=== PATIENT | female | born 1975 | race Caucasian/White ===

== ENCOUNTER 2023-03-08 16:29 | Inpatient (IN) | payer BC ==
--- NOTE | 2023-03-08 17:49 | ED ---
Abdominal Pain HPI - General Chief Complaint: Abdominal Pain Stated Complaint: [place] Time Seen by Provider: 03/08/23 17:50 Source: patient Mode of arrival: ambulatory - History of Present Illness Initial Comments: 47-year-old female presenting to the ED with a chief complaint of abnormal imaging. Patient states for the past 2 weeks has had upper abdominal pain radiating to the right upper side of her abdomen with associated nausea and vomiting. CT performed today shows gallstone within the gallbladder neck with gallbladder wall thickening suspicious for acute cholecystitis. Denies fever or chills. No changes in bowel or bladder habits. No chest pain or shortness of breath. No other complaints. - Related Data Allergies Allergy/AdvReac Type Severity Reaction Status Date / Time azithromycin Allergy Rash/Hives Verified 03/08/23 16:34 Penicillins Allergy Rash/Hives Verified 03/08/23 16:34 Sulfa (Sulfonamide Allergy Anaphylaxis Verified 03/08/23 16:34 Antibiotics) Review of Systems ROS Statement: Those systems with pertinent positive or pertinent negative responses have been documented in the HPI. ROS Other: All systems not noted in ROS Statement are negative. Past Medical History Past Medical History: No Reported History History of Any Multi-Drug Resistant Organisms: None Reported Past Surgical History: Tubal Ligation Past Psychological History: Anxiety Smoking Status: Former smoker Past Alcohol Use History: None Reported Past Drug Use History: None Reported General Exam - General Exam Comments Initial Comments: Visual Physical Exam Vital signs reviewed General: Well-appearing, nontoxic, no acute distress. Head: Normocephalic, atraumatic Eyes: PERRLA, EOMI ENT: Airway patent Chest: Nonlabored breathing Skin: No visual rash, normal skin tone Neuro: Alert and oriented 3 Musculoskeletal: No gross abnormalities General appearance: alert, in no apparent distress Neck exam: Present: normal inspection Respiratory exam: Present: normal lung sounds bilaterally Cardiovascular Exam: Present: regular rate, normal rhythm GI/Abdominal exam: Present: soft (Epigastric and right upper quadrant tenderness to palpation.) Neurological exam: Present: alert, oriented X3 Skin exam: Present: warm, dry Course Vital Signs 03/08/23 16:31 Temperature 98.2 F Pulse Rate 96 Respiratory 18 Rate O2 Sat by Pulse 100 Oximetry Medical Decision Making - Medical Decision Making Was pt. sent in by a medical professional or institution (, PA, OFFICE SUPPORT ASSISTANT, urgent care, hospital, or halfway...) When possible be specific @ -No Did you speak to anyone other than the patient for history (EMS, parent, family, police, friend...)? What history was obtained from this source @ -No Did you review nursing and triage notes (agree or disagree)? Why? @ -I reviewed and agree with nursing and triage notes Were old charts reviewed (outside hosp., previous admission, EMS record, old EKG, old radiological studies, urgent care reports/EKG's, halfway records)? Report findings @ -Computed tomography scan reviewed. For further details please see HPI. Differential Diagnosis (chest pain, altered mental status, abdominal pain women, abdominal pain men, vaginal bleeding, weakness, fever, dyspnea, syncope, headache, dizziness, GI bleed, back pain, seizure, CVA, palpatations, mental health, musculoskeletal)? @ -Differential Abdominal Pain Women: Appendicitis, Cholecystitis, diverticulosis, ischemic bowel, pancreatitis, hepatitis, UTI, gastroenteritis, AAA, incarcerated hernia, bowel obstruction, constipation, inflammatory bowel, hepatitis, peptic ulcer disease, splenic infarction, perforated viscus, vulvitis, ovarian torsion, PID, kidney stone, placenta abruption, this is not meant to be an all-inclusive list EKG interpreted by me (3pts min.). @ -EKG shows a sinus rhythm with nonspecific ST and T-wave changes. X-rays interpreted by me (1pt min.). @ -None done CT interpreted by me (1pt min.). @ -None done U/S interpreted by me (1pt. min.). @ -Ultrasound interpreted by me showing 2.1 cm stone near the neck of the gallbladder. What testing was considered but not performed or refused? (CT, X-rays, U/S, labs)? Why? @ -None What meds were considered but not given or refused? Why? @ -None Did you discuss the management of the patient with other professionals (professionals i.e. , PA, OFFICE SUPPORT ASSISTANT, lab, RT, psych nurse, perinatal social worker, surgeon/president, t eacher, chief supply chain officer, gearcase assembler)? Give summary @ -Case discussed with Dr. Robertson, at this time recommends addition of gallbladder ultrasound. Case discussed with Dr. Robertson, who kathryn admission to medicine with her on consult. Discussed with Dr. Sy, who accepts admission with consult to surgery. Was smoking cessation discussed for >3mins.? @ -No Was critical care preformed (if so, how long)? @ -No Were there social determinants of health that impacted care today? How? (Homelessness, low income, unemployed, alcoholism, drug addiction, transportation, low edu. Level, literacy, decrease access to med. care, correction, rehab)? @ -No Was there de-escalation of care discussed even if they declined (Discuss DNR or withdrawal of care, Hospice)? DNR status @ -No What co-morbidities impacted this encounter? (DM, HTN, Smoking, COPD, CAD, Cancer, CVA, ARF, Chemo, Hep., AIDS, mental health diagnosis, sleep apnea, morbid obesity)? @ -Obesity Was patient admitted / discharged? Hospital course, mention meds given and route, prescriptions, significant lab abnormalities, going to OR and other pertinent info. @ -Admission 47 year old female presenting to the ED with a chief complaint of epigastric/RUQ abdominal pain for the past two weeks with associated nausea and vomiting. Patient had outpatient CT performed today that showed stones within the gallbladder. Ultrasound here shows stone 2.1 cm near the neck of the gallbladder. Laboratory studies reviewed. CBC CMP unremarkable with no transaminitis. He shouldn't not started on broad-spectrum antibiotics in the ED due to significant ALLERGIES to azithromycin, penicillins, sulfa drugs. Hospitalist reports that he will start the patient on IV antibiotics. Undiagnosed new problem with uncertain prognosis? @ -No Drug Therapy requiring intensive monitoring for toxicity (Heparin, Nitro, Insulin, Cardizem)? @ -No Were any procedures done? @ -No Diagnosis/symptom? @ -Choleystitis Acute, or Chronic, or Acute on Chronic? @ -Acute Uncomplicated (without systemic symptoms) or Complicated (systemic symptoms)? @ -Uncomplicated Side effects of treatment? @ -No Exacerbation, Progression, or Severe Exacerbation? @ -No Poses a threat to life or bodily function? How? (Chest pain, USA, CT, pneumonia, PE, COPD, DKA, ARF, appy, cholecystitis, CVA, Diverticulitis, Homicidal, Suicidal, threat to staff... and all critical care pts) @ -No - Lab Data Result diagrams: 03/08/23 18:42 03/08/23 18:42 Lab Results 03/08/23 03/08/23 03/08/23 Range/Units 18:42 18:42 18:42 WBC 9.9 (3.8-10.6) k/uL RBC 4.58 (3.80-5.40) m/uL Hgb 14.6 (11.4-16.0) gm/dL Hct 43.6 (34.0-46.0) % MCV 95.0 (80.0-100.0) fL MCH 31.7 (25.0-35.0) pg MCHC 33.4 (31.0-37.0) g/dL RDW 12.3 (11.5-15.5) % Plt Count 233 (150-450) k/uL MPV 7.7 Neutrophils % 73 % Lymphocytes % 16 % Monocytes % 6 % Eosinophils % 2 % Basophils % 1 % Neutrophils # 7.2 (1.3-7.7) k/uL Lymphocytes # 1.6 (1.0-4.8) k/uL Monocytes # 0.5 (0-1.0) k/uL Eosinophils # 0.2 (0-0.7) k/uL Basophils # 0.1 (0-0.2) k/uL Sodium 139 (137-145) mmol/L Potassium 3.6 (3.5-5.1) mmol/L Chloride 102 (98-107) mmol/L Carbon Dioxide 25 (22-30) mmol/L Anion Gap 12 mmol/L BUN 9 (7-17) mg/dL Creatinine 0.50 L (0.52-1.04) mg/dL Est GFR (CKD-EPI)AfAm >90 (>60 ml/min/1.73 sqM) Est GFR (CKD-EPI)NonAf >90 (>60 ml/min/1.73 sqM) Glucose 92 (74-99) mg/dL Calcium 9.3 (8.4-10.2) mg/dL Total Bilirubin 0.7 (0.2-1.3) mg/dL AST 26 (14-36) U/L ALT 21 (4-34) U/L Alkaline Phosphatase 81 (38-126) U/L Total Protein 7.5 (6.3-8.2) g/dL Albumin 4.3 (3.5-5.0) g/dL Amylase 61 (30-110) U/L Lipase 137 (23-300) U/L Urine Color Dark Yellow Urine Appearance Slightly Cloudy H (Clear) Urine pH 6.0 (5.0-8.0) Ur Specific [place] 1.005 (1.001-1.035) Urine Protein Negative (Negative) Urine Glucose (UA) Negative (Negative) Urine Ketones 4+ (Negative) Urine Blood Small (Negative) Urine Nitrite Negative (Negative) Urine Bilirubin Negative (Negative) Urine Urobilinogen <2.0 (<2.0) mg/dL Ur Leukocyte Esterase Negative (Negative) Urine RBC 2 (0-5) /hpf Urine WBC 1 (0-5) /hpf Ur Squamous Epith Cells 1 (0-4) /hpf Urine Mucus Rare H (None) /hpf Blood Type Blood Type Recheck Bld Type Recheck Status Antibody Screen Spec Expiration Date 03/08/23 Range/Units 18:42 WBC (3.8-10.6) k/uL RBC (3.80-5.40) m/uL Hgb (11.4-16.0) gm/dL Hct (34.0-46.0) % MCV (80.0-100.0) fL MCH (25.0-35.0) pg MCHC (31.0-37.0) g/dL RDW (11.5-15.5) % Plt Count (150-450) k/uL MPV Neutrophils % % Lymphocytes % % Monocytes % % Eosinophils % % Basophils % % Neutrophils # (1.3-7.7) k/uL Lymphocytes # (1.0-4.8) k/uL Monocytes # (0-1.0) k/uL Eosinophils # (0-0.7) k/uL Basophils # (0-0.2) k/uL Sodium (137-145) mmol/L Potassium (3.5-5.1) mmol/L Chloride (98-107) mmol/L Carbon Dioxide (22-30) mmol/L Anion Gap mmol/L BUN (7-17) mg/dL Creatinine (0.52-1.04) mg/dL Est GFR (CKD-EPI)AfAm (>60 ml/min/1.73 sqM) Est GFR (CKD-EPI)NonAf (>60 ml/min/1.73 sqM) Glucose (74-99) mg/dL Calcium (8.4-10.2) mg/dL Total Bilirubin (0.2-1.3) mg/dL AST (14-36) U/L ALT (4-34) U/L Alkaline Phosphatase (38-126) U/L Total Protein (6.3-8.2) g/dL Albumin (3.5-5.0) g/dL Amylase (30-110) U/L Lipase (23-300) U/L Urine Color Urine Appearance (Clear) Urine pH (5.0-8.0) Ur Specific [place] (1.001-1.035) Urine Protein (Negative) Urine Glucose (UA) (Negative) Urine Ketones (Negative) Urine Blood (Negative) Urine Nitrite (Negative) Urine Bilirubin (Negative) Urine Urobilinogen (<2.0) mg/dL Ur Leukocyte Esterase (Negative) Urine RBC (0-5) /hpf Urine WBC (0-5) /hpf Ur Squamous Epith Cells (0-4) /hpf Urine Mucus (None) /hpf Blood Type A Positive Blood Type Recheck No Previous Record Bld Type Recheck Status CABO Indicated Antibody Screen NEGATIVE Spec Expiration Date 03/11/20232341 Disposition Clinical Impression: Cholecystitis Disposition: ADMITTED IP TO THIS HOSP Condition: Good Referrals: Daryl Matthews MD [Primary Care Provider] - 1-2 days Time of Disposition: 22:26
[2023-03-08 19:46] LABS: Basophils # (A) 0.1 k/uL (0-0.2); Basophils % (A) 1 %; Eosinophils # (A) 0.2 k/uL (0-0.7); Eosinophils % (A) 2 %; HCT 43.6 % (34.0-46.0); HGB 14.6 gm/dL (11.4-16.0); Lymphocytes # (A) 1.6 k/uL (1.0-4.8); Lymphocytes % (A) 16 %; MCH 31.7 pg (25.0-35.0); MCHC 33.4 g/dL (31.0-37.0); Mean Platelet Volume 7.7; Monocytes # (A) 0.5 k/uL (0-1.0); Monocytes % (A) 6 %; Neutrophils # (A) 7.2 k/uL (1.3-7.7); Neutrophils % (A) 73 %; Platelet Count 233 k/uL (150-450); RBC 4.58 m/uL (3.80-5.40); RDW 12.3 % (11.5-15.5); WBC 9.9 k/uL (3.8-10.6)
[2023-03-08 20:05] LABS: Mucus,Urine Rare /hpf; RBC,Urine 2 /hpf (0-5); Squamous Epithelial Cell,Urine 1 /hpf (0-4); WBC,Urine 1 /hpf (0-5)
[2023-03-08 20:09] LABS: ALT 21 U/L (4-34); AST 26 U/L (14-36); African American GFR (CKD) >90 (>60 ml/min/1.73 sqM); Albumin 4.3 g/dL (3.5-5.0); Alkaline Phosphatase 81 U/L (38-126); Amylase 61 U/L (30-110); Anion Gap 12 mmol/L; Blood Urea Nitrogen 9 mg/dL (7-17); Calcium 9.3 mg/dL (8.4-10.2); Carbon Dioxide 25 mmol/L (22-30); Chloride 102 mmol/L (98-107); Glucose 92 mg/dL (74-99); Lipase 137 U/L (23-300); Non-African American GFR(CKD) >90 (>60 ml/min/1.73 sqM); Potassium 3.6 mmol/L (3.5-5.1); Sodium 139 mmol/L (137-145); Total Bilirubin 0.7 mg/dL (0.2-1.3); Total Protein 7.5 g/dL (6.3-8.2)
[2023-03-08 20:17] LABS: Appearance,Urine Slightly Cloudy (Clear); Color,Urine Dark Yellow; Specific Gravity,Urine 1.005 (1.001-1.035)
[2023-03-08 20:18] LABS: Bilirubin,Urine Negative (Negative); Blood,Urine Small (Negative); Glucose,Urine (UA) Negative (Negative); Ketones,Urine 4+ (Negative); Protein,Urine Negative (Negative)
[2023-03-08 20:19] LABS: Leukocyte Esterase,Urine Negative (Negative); Nitrite,Urine Negative (Negative); Urobilinogen,Urine <2.0 mg/dL (<2.0)
--- NOTE | 2023-03-08 21:41 | US ---
EXAMINATION TYPE: US gallbladder DATE OF EXAM: 03/08/2023 COMPARISON: CT: Today CLINICAL INDICATION: Female, 47 years old with history of hx stone; RUQ pain x 2 weeks with N/V. CT f ound gallstones today TECHNIQUE: Multiple sonographic images of the right upper quadrant are obtained. FINDINGS: Exam limited by bowel gas. EXAM MEASUREMENTS: Liver Length: 13.9 cm Gallbladder Wall: 0.81 cm CBD: 0.48 cm Right Kidney: 11.2 x 4.6 x 5.1 cm CANAL LOCK TENDER CHIEF OPERATOR NOTES: Pancreas: Only head visible, which appears wnl Liver: Heterogeneous without focal mass lesion. Gallbladder: Large gallstone near neck measuring 2.1cm. Other echogenic material seen (Image 36) Evidence for sonographic Mejia's sign: Yes CBD: wnl Right Kidney: wnl IMPRESSION: Cholelithiasis with a thickened appearance of the gallbladder wall and positive sonographic Mejia's sign, suggestive of acute cholecystitis.
[2023-03-08] MEDS ORDERED: NALOXONE 0.4 MG/ML 1 ML VIAL IV PRN (22:18)
[2023-03-08] MEDS ORDERED: KETOROLAC 15 MG/ML 1 ML VIAL IVP PRN (22:18)
[2023-03-08] MEDS ORDERED: metroNIDAZOLE-NS PMX 500 MG in SALINE 1 100ML.BAG IVPB STA (22:20)
[2023-03-08] MEDS ORDERED: LEVOFLOXACIN 750MG-D5W PMX 750 MG in DEXTROSE/WATER 1 150ML.BAG IVPB STA (22:20)
[2023-03-08] MEDS: SODIUM CHLORIDE 0.9% 1,000 ML IV SCH (23:13)
[2023-03-09] MEDS ORDERED: PANTOPRAZOLE 40 MG TABLET PO PRN (05:02)
--- NOTE | 2023-03-09 05:06 | P.HPIM ---
History of Present Illness H&P Date: 03/08/23 Chief Complaint: Abnormal computed tomography scan results 47-year-old female with anxiety Patient coming in for computed tomography scan of the abdomen results showing possible acute cholecystitis. Patient reports 2 week of abdominal pain described it as midepigastric radiating to the right upper quadrant shooting to the right shoulder sometimes wraps around her belly to the back with pain sharp in nature worse with eating. She reports decreased by mouth intake taking only liquids if needed. However over the weekend she had increased pain after eating a meal associated with nausea and vomiting worsening abdominal pain she denies any urinary changes denies any vaginal discharge or bleeding denies any changes in bowel habits denies any fevers or chills. She does report a remote history of stomach ulcers. Today she had a CAT scan done which was suspicious for acute cholecystitis for which she came to the hospital for further care review of systems Pertinent positives as noted in HPI. All other systems were reviewed and are negative on exam Constitutional: No acute distress, conversant, pleasant Eyes: Anicteric sclerae, moist conjunctiva, Pupils equal round reactive to light ENMT: NC/AT Oropharynx clear, no erythema, or exudates Neck: Supple, no masses, or JVD No carotid bruits No thyromegaly Lungs: Clear to auscultation Clear to percussion Normal respiratory effort, no accessory muscle use Cardiovascular: Heart regular in rate and rhythm, No murmurs, gallops, or rubs No peripheral edema Abdominal: Soft Tender to palpation of the right upper quadrant with Mejia sign positive, no guarding, rebound or rigidity Abdomen moving with respiration Normoactive bowel sounds No hepatomegaly, No splenomegaly No palpable mass No abdominal wall hernia noted Extremities: No digital cyanosis No clubbing Pedal pulses intact and symmetrical Radial pulses intact and symmetrical No calf tenderness Psychiatric: Alert and oriented to person, place and time Appropriate affect fair judgement Neuro Muscles Strength 5/5 in all 4 extremities Sensation to light touch grossly present throughout Cranial nerves II-XII grossly intact Lymphatics: no palpable cervical or supraclavicular lymph nodes Past Medical History Past Medical History: No Reported History History of Any Multi-Drug Resistant Organisms: None Reported Past Surgical History: Tubal Ligation Past Psychological History: Anxiety Smoking Status: Former smoker Past Alcohol Use History: None Reported Past Drug Use History: None Reported Medications and Allergies Home Medications Medication Instructions Recorded Confirmed Type Cetirizine HCl [Zyrtec] 10 mg PO DAILY 03/08/23 03/08/23 History Echinacea & Goldenseal Root 1 cap PO DAILY 03/08/23 03/08/23 History Supplement Multivitamins, Thera [Multivitamin 1 tab PO DAILY 03/08/23 03/08/23 History (formulary)] Omeprazole 20 mg PO DAILY PRN 03/08/23 03/08/23 History PARoxetine HCL [Paxil] 30 mg PO DAILY 03/08/23 03/08/23 History Sucralfate [Carafate] 1 gm PO DIRECTED 03/08/23 03/08/23 History diphenhydrAMINE HCL [Benadryl] 25 mg PO HS 03/08/23 03/08/23 History Allergies Allergy/AdvReac Type Severity Reaction Status Date / Time azithromycin Allergy Rash/Hives Verified 03/08/23 23:08 Penicillins Allergy Rash/Hives Verified 03/08/23 23:08 Sulfa (Sulfonamide Allergy Anaphylaxis Verified 03/08/23 23:08 Antibiotics) Physical Exam Vitals: Vital Signs Temp Pulse Resp Pulse Ox 03/08/23 16:31 98.2 F 96 18 100 Intake and Output 03/08/23 03/08/23 03/09/23 14:59 22:59 06:59 Other: Weight 111.13 kg Results CBC & Chem 7: 03/08/23 18:42 03/08/23 18:42 Labs: Abnormal Lab Results - Last 24 Hours (Table) 03/08/23 03/08/23 Range/Units 18:42 18:42 Creatinine 0.50 L (0.52-1.04) mg/dL Urine Appearance Slightly Cloudy H (Clear) Urine Mucus Rare H (None) /hpf Assessment and Plan Assessment: 47-year-old female with anxiety coming in with abnormal abdominal CAT scan results showing possible acute cholecystitis patient has been reporting symptoms of upper abdominal pain with nausea vomiting with eating over the past 2 weeks I discussed case with the pengor accepted the admission for acute cholecystitis secondary to gallstones with anticipated length of stay more than 2 midnights Acute cholecystitis secondary to gallstones Gen. surgery consultation Follow-up cultures Patient started on levofloxacin 750 mg IV piggyback daily with Flagyl 500 mg IV piggyback every 8 hours( due to ALLERGIES to penicillin) Toradol 15 mg IV push every 6 hours when necessary for pain Protonix 40 mg by mouth daily IV fluid hydration normal saline for 75 mL per hour Nothing by mouth Abdominal ultrasound was positive for sonographic Mejia sign positive CAT scan done outpatient the abdomen was positive for gallstones was suspected acute cholecystitis Anxiety Continue with Paxil Xanax when necessary when 5 mg every 8 hours by mouth Blood work reviewed shows white count 9.9 hemoglobin 14.6 unremarkable Renal function unremarkable sodium 139 potassium 3.6 BUN 9 creatinine 0.5 Troponin negative 2 Urine analysis unremarkable Liver enzymes unremarkable with AST 26 ALT 21 alkaline phosphatase 81 total bilirubin 0.7 Full code DVT prophylaxis heparin subcu 3 times a day
[2023-03-09] MEDS ORDERED: ALPRAZolam 0.5 MG TAB PO PRN (05:08)
[2023-03-09] MEDS: metroNIDAZOLE-NS PMX 500 MG in SALINE 1 100ML.BAG IVPB SCH ×3 (06:45→23:52)
[2023-03-09] MEDS: HEPARIN SODIUM,PORCINE 5,000 UNIT/ML 1 ML VIAL SQ SCH ×3 (08:03→23:51)
[2023-03-09] MEDS: PANTOPRAZOLE 40 MG TABLET PO SCH (08:03)
[2023-03-09 10:07] LABS: Basophils # (A) 0.1 k/uL (0-0.2); Basophils % (A) 1 %; Eosinophils # (A) 0.2 k/uL (0-0.7); Eosinophils % (A) 3 %; HCT 41.7 % (34.0-46.0); HGB 13.8 gm/dL (11.4-16.0); Lymphocytes # (A) 1.3 k/uL (1.0-4.8); Lymphocytes % (A) 18 %; MCH 32.3 pg (25.0-35.0); MCHC 33.1 g/dL (31.0-37.0); MCV 97.5 fL (80.0-100.0); Mean Platelet Volume 7.4; Monocytes # (A) 0.5 k/uL (0-1.0); Monocytes % (A) 6 %; Neutrophils # (A) 4.9 k/uL (1.3-7.7); Neutrophils % (A) 69 %; Platelet Count 227 k/uL (150-450); RBC 4.27 m/uL (3.80-5.40); RDW 11.9 % (11.5-15.5); WBC 7.1 k/uL (3.8-10.6)
[2023-03-09] MEDS: PARoxetine 10 MG TAB PO SCH (10:20)
[2023-03-09 10:25] LABS: African American GFR (CKD) >90 (>60 ml/min/1.73 sqM); Albumin 3.7 g/dL (3.5-5.0); Albumin/Globulin Ratio 1.2; Alkaline Phosphatase 63 U/L (38-126); Anion Gap 12 mmol/L; Blood Urea Nitrogen 9 mg/dL (7-17); Calcium 8.6 mg/dL (8.4-10.2); Carbon Dioxide 22 mmol/L (22-30); Chloride 105 mmol/L (98-107); Glucose 82 mg/dL (74-99); Non-African American GFR(CKD) >90 (>60 ml/min/1.73 sqM); Sodium 139 mmol/L (137-145); Total Bilirubin 0.8 mg/dL (0.2-1.3); Total Protein 6.7 g/dL (6.3-8.2)
[2023-03-09 10:31] LABS: ALT 18 U/L (4-34); AST 31 U/L (14-36)
--- NOTE | 2023-03-09 12:46 | P.GSCN ---
History of Present Illness Consult date: 03/09/23 History of present illness: CHIEF COMPLAINT: Abdominal pain HISTORY OF PRESENT ILLNESS: This is a 47-year-old female who presents with right upper quadrant abdominal pain 2 weeks. She reports initially she thought she had the flu. But then continued to have a decreased appetite and episodes of nausea and vomiting. Patient reports that she had finally been feeling better try to eat steak, vegetables and rice and then proceeded to have increased abdominal pain and vomiting. She denies any fever chills or sweats. Surgical history includes a tubal ligation. Gallbladder ultrasound had shown gallstones and thickened gallbladder wall with a positive Mejia sign, suggestive of acute cholecystitis. Surgical service consulted for acute cholecystitis. Patient is on IV antibiotics. PAST MEDICAL HISTORY: See below PAST SURGICAL HISTORY: See below MEDICATIONS: See below ALLERGIES: See below SOCIAL HISTORY: No illicit drug use. REVIEW OF SYSTEMS: CONSTITUTIONAL: Denies fever or chills. HEENT: Denies blurred vision, vision changes, or eye pain. Denies hemoptysis CARDIOVASCULAR: Denies chest pain or pressure. RESPIRATORY: No shortness of breath. GASTROINTESTINAL: See HPI for pertinent findings HEMATOLOGIC: Denies bleeding disorders. GENITOURINARY: Denies any blood in urine or increased urinary frequency. SKIN: Denies pruitis. Denies rash. PHYSICAL EXAM: VITAL SIGNS: Reviewed GENERAL: Well-developed in no acute distress. HEENT: No sclera icterus. Extraocular movements grossly intact. Moist buccal mucosa. Head is atraumatic, normocephalic. No nasal drainage. ABDOMEN: Soft. Nondistended. Right upper quadrant tenderness with palpation NEUROLOGIC: Alert and oriented. Cranial nerves II through XII grossly intact. LABORATORY DATA: WBC 7.1 Hgb 13.8 platelets 227 Sodium 139 potassium 4.0 creatinine 0.43 Liver enzymes normal Troponins negative 3 sets lipase 137 IMAGING: Gallbladder ultrasound as stated above ASSESSMENT: 1. Acute cholecystitis with ultrasound showing evidence of cholelithiasis, thickened gallbladder wall and positive Mejia sign 2. Anxiety PLAN: -Patient scheduled for Robotic cholecystectomy today with Dr. Robertson -Keep patient nothing by mouth -Continue IV antibiotics -Continue supportive care Thank you for this consultation Physician Shop Mechanic note has been reviewed by physician. Signing provider agrees with the documented findings, assessment, and plan of care. Past Medical History Past Medical History: No Reported History History of Any Multi-Drug Resistant Organisms: None Reported Past Surgical History: Tubal Ligation Past Psychological History: Anxiety Smoking Status: Former smoker Past Alcohol Use History: None Reported Past Drug Use History: None Reported Medications and Allergies Home Medications Medication Instructions Recorded Confirmed Type Cetirizine HCl [Zyrtec] 10 mg PO DAILY 03/08/23 03/08/23 History Echinacea & Goldenseal Root 1 cap PO DAILY 03/08/23 03/08/23 History Supplement Multivitamins, Thera [Multivitamin 1 tab PO DAILY 03/08/23 03/08/23 History (formulary)] Omeprazole 20 mg PO DAILY PRN 03/08/23 03/08/23 History PARoxetine HCL [Paxil] 30 mg PO DAILY 03/08/23 03/08/23 History Sucralfate [Carafate] 1 gm PO DIRECTED 03/08/23 03/08/23 History diphenhydrAMINE HCL [Benadryl] 25 mg PO HS 03/08/23 03/08/23 History Allergies Allergy/AdvReac Type Severity Reaction Status Date / Time azithromycin Allergy Rash/Hives Verified 03/08/23 23:08 Penicillins Allergy Rash/Hives Verified 03/08/23 23:08 Sulfa (Sulfonamide Allergy Anaphylaxis Verified 03/08/23 23:08 Antibiotics) Surgical - Exam Vital Signs Temp Pulse Resp Pulse Ox 98.2 F 96 18 100 03/08/23 16:31 03/08/23 16:31 03/08/23 16:31 03/08/23 16:31 Results - Labs 03/09/23 09:37 03/09/23 09:37 Abnormal Lab Results - Last 24 Hours (Table) 03/08/23 03/08/23 Range/Units 18:42 18:42 Creatinine 0.50 L (0.52-1.04) mg/dL Urine Appearance Slightly Cloudy H (Clear) Urine Mucus Rare H (None) /hpf Diabetes panel 03/08/23 Range/Units 18:42 Sodium 139 (137-145) mmol/L Potassium 3.6 (3.5-5.1) mmol/L Chloride 102 (98-107) mmol/L Carbon Dioxide 25 (22-30) mmol/L BUN 9 (7-17) mg/dL Creatinine 0.50 L (0.52-1.04) mg/dL Glucose 92 (74-99) mg/dL Calcium 9.3 (8.4-10.2) mg/dL AST 26 (14-36) U/L ALT 21 (4-34) U/L Alkaline Phosphatase 81 (38-126) U/L Total Protein 7.5 (6.3-8.2) g/dL Albumin 4.3 (3.5-5.0) g/dL Calcium panel 03/08/23 Range/Units 18:42 Calcium 9.3 (8.4-10.2) mg/dL Albumin 4.3 (3.5-5.0) g/dL Pituitary panel 03/08/23 Range/Units 18:42 Sodium 139 (137-145) mmol/L Potassium 3.6 (3.5-5.1) mmol/L Chloride 102 (98-107) mmol/L Carbon Dioxide 25 (22-30) mmol/L BUN 9 (7-17) mg/dL Creatinine 0.50 L (0.52-1.04) mg/dL Glucose 92 (74-99) mg/dL Calcium 9.3 (8.4-10.2) mg/dL Adrenal panel 03/08/23 Range/Units 18:42 Sodium 139 (137-145) mmol/L Potassium 3.6 (3.5-5.1) mmol/L Chloride 102 (98-107) mmol/L Carbon Dioxide 25 (22-30) mmol/L BUN 9 (7-17) mg/dL Creatinine 0.50 L (0.52-1.04) mg/dL Glucose 92 (74-99) mg/dL Calcium 9.3 (8.4-10.2) mg/dL Total Bilirubin 0.7 (0.2-1.3) mg/dL AST 26 (14-36) U/L ALT 21 (4-34) U/L Alkaline Phosphatase 81 (38-126) U/L Total Protein 7.5 (6.3-8.2) g/dL Albumin 4.3 (3.5-5.0) g/dL
[2023-03-09] MEDS: SODIUM CHLORIDE 0.9% 1,000 ML IV SCH ×2 (14:42→18:35)
--- NOTE | 2023-03-09 16:08 | P.PN ---
Subjective Progress Note Date: 03/09/23 Hospital Course: 47-year-old female with anxiety presenting with abdominal pain. Vital signs within normal limits. Gallbladder ultrasound shows evidence of acute cholecystitis. Laboratory workup unremarkable. Patient pending cholecystectomy. Subjective: Patient seen and examined at bedside. No acute events overnight. Pertinent positives and negatives as discussed above, a complete review of systems was performed and all other systems are negative. Vitals Signs Reviewed. General: nontoxic, no distress, appears at stated age Derm: warm, dry Head: atraumatic, normocephalic, symmetric Eyes: EOMI, no lid lag, anicteric sclera Mouth: no lip lesion, mucus membranes moist Cardiovascular: S1S2 reg, no murmur Lungs: CTA bilateral, no rhonchi, no rales , no accessory muscle use Abdominal: soft, tender to palpation right upper quadrant, no guarding, no appreciable organomegaly Ext: no gross muscle atrophy, no edema, no contractures Neuro: CN II-XI grossly intact, no focal neuro deficits Psych: Alert, oriented, appropriate affect Data Reviewed Today: Pertinent Labs: WBC 7.1, hemoglobin 13.8, creatinine 0.43 Imaging: No new imaging Assessment and Plan: Acute cholecystitis -Surgery not reviewed, pending robotic cholecystectomy -Continue levofloxacin 750 IV every 24 hours, Flagyl 500 IV every 8 hours -Okay to continue normal saline at 75 mL an hour -Pain control with IV Toradol, IV Dilaudid as needed, monitor for respiratory depression GERD - 40 mg oral pantoprazole Anxiety -Paroxetine 30 mg daily DVT ppx: SCDs Code status: Full code Anticipated discharge place: Pending Clinical course Anticipated discharge time: Pending Clinical course Objective - Vital Signs Vital signs: Vital Signs Temp 98.8 F 03/09/23 06:28 Pulse 81 03/09/23 12:00 Resp 17 03/09/23 12:00 BP 126/76 03/09/23 12:00 Pulse Ox 95 03/09/23 12:00 FiO2 Intake & Output 03/08/23 03/09/23 03/09/23 18:59 06:59 18:59 Weight 111.13 kg - Labs CBC & Chem 7: 03/09/23 09:37 03/09/23 09:37 Labs: Abnormal Lab Results - Last 24 Hours (Table) 03/08/23 03/08/23 03/09/23 Range/Units 18:42 18:42 09:37 Creatinine 0.50 L 0.43 L (0.52-1.04) mg/dL Urine Appearance Slightly Cloudy H (Clear) Urine Mucus Rare H (None) /hpf
[2023-03-09] MEDS: LEVOFLOXACIN 750MG-D5W PMX 750 MG in DEXTROSE/WATER 1 150ML.BAG IVPB SCH (23:52)
[2023-03-10 06:18] LABS: Basophils % (A) 1 %; Eosinophils # (A) 0.2 k/uL (0-0.7); Eosinophils % (A) 4 %; HCT 38.7 % (34.0-46.0); HGB 12.7 gm/dL (11.4-16.0); Lymphocytes # (A) 1.1 k/uL (1.0-4.8); Lymphocytes % (A) 16 %; MCH 31.5 pg (25.0-35.0); MCHC 32.9 g/dL (31.0-37.0); MCV 95.7 fL (80.0-100.0); Mean Platelet Volume 7.9; Monocytes # (A) 0.5 k/uL (0-1.0); Monocytes % (A) 7 %; Neutrophils # (A) 4.9 k/uL (1.3-7.7); Neutrophils % (A) 71 %; Platelet Count 233 k/uL (150-450); RBC 4.04 m/uL (3.80-5.40); RDW 11.9 % (11.5-15.5); WBC 6.8 k/uL (3.8-10.6)
[2023-03-10] MEDS: PANTOPRAZOLE 40 MG TABLET PO SCH (06:19)
[2023-03-10] MEDS: metroNIDAZOLE-NS PMX 500 MG in SALINE 1 100ML.BAG IVPB SCH ×2 (06:19→17:29)
[2023-03-10 06:31] LABS: ALT 16 U/L (4-34); AST 20 U/L (14-36); African American GFR (CKD) >90 (>60 ml/min/1.73 sqM); Albumin 3.4 g/dL (3.5-5.0); Albumin/Globulin Ratio 1.2; Alkaline Phosphatase 68 U/L (38-126); Anion Gap 12 mmol/L; Blood Urea Nitrogen 10 mg/dL (7-17); Calcium 8.3 mg/dL (8.4-10.2); Carbon Dioxide 21 mmol/L (22-30); Chloride 105 mmol/L (98-107); Globulin 2.8 g/dL; Glucose 81 mg/dL (74-99); Non-African American GFR(CKD) >90 (>60 ml/min/1.73 sqM); Potassium 3.7 mmol/L (3.5-5.1); Sodium 138 mmol/L (137-145); Total Bilirubin 0.5 mg/dL (0.2-1.3); Total Protein 6.2 g/dL (6.3-8.2)
[2023-03-10] MEDS: HEPARIN SODIUM,PORCINE 5,000 UNIT/ML 1 ML VIAL SQ SCH ×2 (07:53→17:34)
[2023-03-10] MEDS: PARoxetine 10 MG TAB PO SCH (07:58)
[2023-03-10] MEDS ORDERED: INDOCYANINE GREEN 25 MG VIAL IV STA (07:59)
[2023-03-10] MEDS ORDERED: SCOPOLAMINE 1 MG/72 HR PATCH TRANSDERM STA (08:00)
[2023-03-10] MEDS ORDERED: SODIUM CHLORIDE 0.9% 2,000 ML IV ONE (08:01)
--- NOTE | 2023-03-10 13:49 | P.PN ---
Subjective Progress Note Date: 03/10/23 Hospital Course: 47-year-old female with anxiety presenting with abdominal pain. Vital signs w ithin normal limits. Gallbladder ultrasound shows evidence of acute cholecystitis. Laboratory workup unremarkable. Patient pending cholecystectomy. Subjective: Patient seen and examined at bedside. No acute events overnight. Still having abdominal pain Pertinent positives and negatives as discussed above, a complete review of systems was performed and all other systems are negative. Vitals Signs Reviewed. General: nontoxic, no distress, appears at stated age Derm: warm, dry Head: atraumatic, normocephalic, symmetric Eyes: EOMI, no lid lag, anicteric sclera Mouth: no lip lesion, mucus membranes moist Cardiovascular: S1S2 reg, no murmur Lungs: CTA bilateral, no rhonchi, no rales , no accessory muscle use Abdominal: soft, tender to palpation right upper quadrant, no guarding, no appreciable organomegaly Ext: no gross muscle atrophy, no edema, no contractures Neuro: CN II-XI grossly intact, no focal neuro deficits Psych: Alert, oriented, appropriate affect Data Reviewed Today: Pertinent Labs: WBC 6.8, hemoglobin 12.7, bicarb 21, creatinine 0.46 Imaging: No new imaging Assessment and Plan: Acute cholecystitis -Surgery following, pending robotic cholecystectomy likely today -Continue levofloxacin 750 IV every 24 hours, Flagyl 500 IV every 8 hours -Okay to continue normal saline at 75 mL an hour -Pain control with IV Toradol, IV Dilaudid as needed, monitor for respiratory depression GERD - 40 mg oral pantoprazole Anxiety -Paroxetine 30 mg daily DVT ppx: Subcu heparin Code status: Full code Anticipated discharge place: Pending Clinical course Anticipated discharge time: Pending Clinical course Objective - Vital Signs Vital signs: Vital Signs Temp 98.2 F 03/10/23 13:47 Pulse 90 03/10/23 13:47 Resp 21 03/10/23 13:47 BP 130/79 03/10/23 13:47 Pulse Ox 96 03/10/23 13:47 FiO2 Intake & Output 03/09/23 03/10/23 03/10/23 18:59 06:59 18:59 Weight 111.13 kg Other: Voiding Method Toilet # Voids 2 - Labs CBC & Chem 7: 03/10/23 05:31 03/10/23 05:31 Labs: Abnormal Lab Results - Last 24 Hours (Table) 03/10/23 Range/Units 05:31 Carbon Dioxide 21 L (22-30) mmol/L Creatinine 0.46 L (0.52-1.04) mg/dL Calcium 8.3 L (8.4-10.2) mg/dL Total Protein 6.2 L (6.3-8.2) g/dL Albumin 3.4 L (3.5-5.0) g/dL Microbiology - Last 24 Hours (Table) 03/08/23 20:53 Blood Culture - Preliminary Blood
[2023-03-10] MEDS ORDERED: MIDAZOLAM 2 MG/2 ML VIAL ONE (18:32)
[2023-03-10] MEDS ORDERED: PHENYLEPHRINE-0.9% NACL SYG 1,000 MCG/10 ML SYRINGE ONE (18:32)
[2023-03-10] MEDS ORDERED: GLYCOPYRROLATE 0.2 MG/ML 2 ML VIAL ONE (18:32)
[2023-03-10] MEDS ORDERED: ROCURONIUM 10 MG/ML (5 ML VIAL) IV ONE (18:32)
[2023-03-10] MEDS ORDERED: HYDROmorphone (PF) 1 MG/ML ONE (18:32)
[2023-03-10] MEDS ORDERED: SUCCINYLCHOLINE CHLORIDE 200 MG/10 ML VIAL IV ONE (18:32)
[2023-03-10] MEDS ORDERED: DEXAMETHASONE SOD PHOSPHATE 4 MG/ML 1 ML VIAL ONE (18:32)
[2023-03-10] MEDS ORDERED: LIDOCAINE 1% INJ 10MG/ML (20 ML MDV) ONE (18:32)
[2023-03-10] MEDS ORDERED: HEPARIN SODIUM,PORCINE 5,000 UNIT/ML 1 ML VIAL ONE (18:32)
[2023-03-10] MEDS ORDERED: KETOROLAC 15 MG/ML 1 ML VIAL ONE (18:32)
[2023-03-10] MEDS ORDERED: fentaNYL (PF) 50 MCG/ML 2 ML AMP ONE (18:32)
[2023-03-10] MEDS ORDERED: ONDANSETRON 4 MG/2 ML VIAL ONE (18:32)
[2023-03-10] MEDS ORDERED: NEOSTIGMINE 1 MG/ML 10 ML VIAL ONE (18:32)
[2023-03-10] MEDS ORDERED: PROPOFOL 10 MG/ML 20 ML VIAL IV ONE (18:32)
[2023-03-10] MEDS ORDERED: LIDOCAINE 1%-EPI 1:100,000 50 ML VIAL SQ ONE (18:37)
[2023-03-10] MEDS ORDERED: LACTATED RINGERS 1,000 ML IV ONE ×2 (18:37→19:33)
[2023-03-10] MEDS ORDERED: METOCLOPRAMIDE 5 MG/ML 2 ML VIAL IVP PRN (21:12)
[2023-03-10] MEDS ORDERED: NALOXONE 0.4 MG/ML 1 ML VIAL IV PRN (21:12)
[2023-03-10] MEDS ORDERED: ONDANSETRON 4 MG/2 ML VIAL IVP PRN (21:12)
--- NOTE | 2023-03-10 21:19 | P.OP ---
Date of Procedure: 03/10/23 Description of Procedure: SURGEON: JOSE KWAN MD PREOPERATIVE DIAGNOSES: 1. Acute cholecystitis with sepsis 2. Symptomatic gallstones 3. Hydrops cholecystitis POSTOPERATIVE DIAGNOSES: 1. Acute gangrenouscholecystitis with cystic duct obstruction due to gallstones 2. Symptomatic gallstones 3. Hydrops cholecystitis OPERATION: Robotic-assisted da Jesus Xi laparoscopic cholecystectomy, multiport with FIREFLY ESTIMATED BLOOD LOSS: 5 mL. SPECIMENS REMOVED: Gallbladder. COMPLICATIONS: None. OPERATIVE FINDINGS: 1. Acute cholecystitis with hydrops and distended gallbladder including necrosis 2. Indocyanine green drain confirms acute cholecystitis with lack of contrast in gallbladder 3. Common bile duct within normal limits, without dilation 4. Vessel sealer use including spatula for cautery 5. Extensive dissection over 1.5 hours for dissection 6. Severely thickened gallbladder wall INDICATIONS: The patient is a 47 year-old female who presents with epigastric right upper quadrant pain, symptomatic gallstones, and clinical features of acute cholecystitis. Antibiotic management including pain management was prescribed to manage her cholecystitis. Surgical intervention with cholecystectomy was described. Robotic assisted laparoscopic approach was de scribed. Benefits and risks of the procedure including but not limited to bleeding, infection, injury to the biliary tree was reviewed. Informed consent was obtained. DESCRIPTION OF PROCEDURE: Patient was brought to the operating room, placed in supine position. After general induction, the abdomen had been prepped and draped in standard sterile fashion. The robotic da Jesus XI system was primed. After a timeout protocol was performed, the patient had been prepped and draped in standard sterile fashion. The patient was injected with indocyanine green. A 5 mm 0 degrees laparoscopic trocar entry was performed along the left upper quadrant. The abdomen insufflated to 15 mmHg pressure which was tolerated well. Diagnostic laparoscopy demonstrated no injury to bowel viscera or mesentery. The liver surface was unremarkable. A moderately distended gallbladder was identified adding complexity to the case. Next, two 8 mm robotic ports were placed along the right upper abdomen. The camera 8-mm port was maintained along the epigastrium. Another 8 mm port was placed along the left upper abdominal wall after exchanging the 5 mm port. Please note that the ports were placed at least 10 to 15 cm away from the target anatomy of the gallbladder. The robot was docked along the left lateral abdomen. The patient was repositioned in reverse Trendelenburg position with the right side up. Using a grasper for arm 3, a grasper for arm 4, including hook cautery for arm 1, the robotic system was docked and primed as described. Instruments were interchanged by the business banking sales assistant including hook cautery, Bovie cautery and clip appliers. I had sat at the console. The gallbladder was reflected towards the dome of the liver. The gallbladder was moderately distended adding complexity to the case. Moderate edema was found along the cystic triangle including infundibulum. Initial dissection was performed on the gallbladder infundibulum using indocyanine green to illuminate the cystic duct and common bile duct. Due to moderate distention of the infundibulum, dome down technique was performed removing the gallbladder from the hepatic fossa starting from the fundus towards the infundibulum. Using a sponge, the liver was reflected towards the diaphragm and starting at the gallbladder fundus, hook cautery was used to find the avascular plane between the liver and the gallbladder. As the gallbladder was dissected from the hepatic fossa, hemostasis was checked using vessel sealer along the posterior gallbladder. Next, indocyanine green was used to confirm the common bile duct as well as cystic duct. The cystic duct was short and dissection was performed at the junction of the cystic duct and infundibulum. The entire gallbladder was without contrast consistent with acute cholecystitis. The infundibulum was retracted laterally to expose the cystic duct away from the common bile duct. The cystic duct was dissected free from its surrounding tissue. FIREFLY was used to identify the cystic structures. A critical view of safety was obtained. Large PLASTIC clips were used throughout the entire case. Using a clip scada technician, a clip was placed at the junction of the infundibulum and cystic duct. The cystic duct was divided using vessel sealer. Next, the cystic artery was divided using vessel sealer. Electro-Bovie cautery and vessel sealer was used to remove the gallbladder without decompression. Hemostasis was checked and found to be adequate. The robot was undocked. I re-scrubbed into the case. A 10 mm Endo Catch bag was used to remove the gallbladder in total via the left upper quadrant incision after widening the incision. The specimen was removed from the abdominal cavity. David Lora and 0 Vicryl was used to close the fascial defect of the left upper quadrant. All pneumoperitoneum instruments were evacuated from the abdominal cavity. The incisions were cleansed using dilute hydrogen peroxide. The incisions were reapproximated using 4-0 Monocryl in an interrupted subcuticular fashion. Please note along the trocar sites, local anesthetic was placed as a field block prior to insertion of all instruments. Liquid glue was applied to the skin. At the end of the procedure needle, sponge, and instrument count had been verified correct by the cardiovascular surgical tech. The patient was transferred to postanesthesia care unit in stable condition. Intraoperative films were shared with the patient's family who were pleased with the level of care.
[2023-03-10] MEDS: SODIUM CHLORIDE 0.9% 1,000 ML IV SCH ×2 (22:22→22:49)
[2023-03-10] MEDS: LEVOFLOXACIN 750MG-D5W PMX 750 MG in DEXTROSE/WATER 1 150ML.BAG IVPB SCH (22:22)
[2023-03-11] MEDS: metroNIDAZOLE-NS PMX 500 MG in SALINE 1 100ML.BAG IVPB SCH ×4 (01:06→22:13)
[2023-03-11] MEDS: HYDROmorphone 1 MG/ML 1 ML SYRINGE IVP PRN ×6 (01:24→23:50)
[2023-03-11] MEDS: HEPARIN SODIUM,PORCINE 5,000 UNIT/ML 1 ML VIAL SQ SCH ×4 (01:47→23:50)
[2023-03-11] MEDS: SODIUM CHLORIDE 0.9% 1,000 ML IV SCH (06:07)
[2023-03-11 06:19] LABS: Basophils % (A) 0 %; Eosinophils % (A) 0 %; HGB 12.9 gm/dL (11.4-16.0); Lymphocytes # (A) 0.6 k/uL (1.0-4.8); Lymphocytes % (A) 6 %; MCH 31.4 pg (25.0-35.0); MCV 95.3 fL (80.0-100.0); Mean Platelet Volume 7.3; Monocytes # (A) 0.4 k/uL (0-1.0); Monocytes % (A) 4 %; Neutrophils % (A) 89 %; Platelet Count 248 k/uL (150-450); RDW 11.8 % (11.5-15.5)
[2023-03-11] MEDS: PANTOPRAZOLE 40 MG TABLET PO SCH (06:23)
[2023-03-11 06:31] LABS: ALT 21 U/L (4-34); AST 48 U/L (14-36); African American GFR (CKD) >90 (>60 ml/min/1.73 sqM); Albumin 3.5 g/dL (3.5-5.0); Albumin/Globulin Ratio 1.3; Alkaline Phosphatase 69 U/L (38-126); Anion Gap 14 mmol/L; Blood Urea Nitrogen 6 mg/dL (7-17); Calcium 8.1 mg/dL (8.4-10.2); Carbon Dioxide 19 mmol/L (22-30); Chloride 104 mmol/L (98-107); Globulin 2.8 g/dL; Glucose 136 mg/dL (74-99); Non-African American GFR(CKD) >90 (>60 ml/min/1.73 sqM); Sodium 137 mmol/L (137-145); Total Bilirubin 0.4 mg/dL (0.2-1.3); Total Protein 6.3 g/dL (6.3-8.2)
[2023-03-11] MEDS: PANTOPRAZOLE 40 MG/10 ML VIAL IV SCH (08:35)
[2023-03-11] MEDS: PARoxetine 10 MG TAB PO SCH (08:36)
--- NOTE | 2023-03-11 11:27 | P.PN ---
Progress Note - Text Progress Note Date: 03/11/23 POD #1 Robotic Cholecystectomy - LFD - Pain and Nausea Control - IV fluids - OOB. ambulate, IS - Will keep patient another day HPI: Patient states she is not ready to go home. She is having abdominal pain and GERD. She hasnt tried much of her diet yet Gen-NAD CVS-RRR Lungs-NLB Abdomen-soft, incisional TTP, ND Ext- no edema
--- NOTE | 2023-03-11 11:56 | P.PN ---
Subjective Progress Note Date: 03/11/23 Hospital Course: 47-year-old female with anxiety presenting with abdominal pain. Vital signs w ithin normal limits. Gallbladder ultrasound shows evidence of acute cholecystitis. Laboratory workup unremarkable. Status post cholecystectomy. Subjective: Patient seen and examined at bedside. No acute events overnight. Still having abdominal soreness. Denies having bowel movement and passing gas. No urinary complaints. He did feel lightheaded when she was ambulating. Pertinent positives and negatives as discussed above, a complete review of systems was performed and all other systems are negative. Vitals Signs Reviewed. General: nontoxic, no distress, appears at stated age Derm: warm, dry Head: atraumatic, normocephalic, symmetric Eyes: EOMI, no lid lag, anicteric sclera Mouth: no lip lesion, mucus membranes moist Cardiovascular: S1S2 reg, no murmur Lungs: CTA bilateral, no rhonchi, no rales , no accessory muscle use Abdominal: soft, nontender, no guarding, no appreciable organomegaly Ext: no gross muscle atrophy, no edema, no contractures Neuro: CN II-XI grossly intact, no focal neuro deficits Psych: Alert, oriented, appropriate affect Data Reviewed Today: Pertinent Labs: WBC 9, hemoglobin 12.9, bicarbonate 19, creatinine 0.46 Imaging: No new imaging Assessment and Plan: Acute cholecystitis status post cholecystectomy -Surgery note reviewed, continue low-fat diet possibly discharge tomorrow -Continue levofloxacin 750 IV every 24 hours, Flagyl 500 IV every 8 hours -Pain control with IV Toradol, IV Dilaudid as needed, monitor for respiratory depression Metabolic acidosis -Discontinue IV fluids, encourage oral intake GERD - 40 mg oral pantoprazole Anxiety -Paroxetine 30 mg daily DVT ppx: Subcu heparin Code status: Full code Anticipated discharge place: Home Anticipated discharge time: Likely tomorrow Objective - Vital Signs Vital signs: Vital Signs Temp 98.2 F 03/11/23 07:14 Pulse 84 03/11/23 07:14 Resp 18 03/11/23 07:14 BP 154/88 03/11/23 07:14 Pulse Ox 90 L 03/11/23 07:14 FiO2 Intake & Output 03/10/23 03/11/23 03/11/23 18:59 06:59 18:59 Intake Total 650 1650 Output Total 5 Balance 650 1645 Intake: IV 650 300 Intake, IV Titration 650 Amount Sodium Chloride 0.9% 1, 650 000 ml @ 130 mls/hr IV . Q7H42M [facility] Rx#:[id number] Oral 700 Output: Estimated Blood Loss 5 Other: # Voids 4 5 - Labs CBC & Chem 7: 03/11/23 05:43 03/11/23 05:43 Labs: Abnormal Lab Results - Last 24 Hours (Table) 03/11/23 03/11/23 Range/Units 05:43 05:43 Neutrophils # 8.0 H (1.3-7.7) k/uL Lymphocytes # 0.6 L (1.0-4.8) k/uL Carbon Dioxide 19 L (22-30) mmol/L BUN 6 L (7-17) mg/dL Creatinine 0.46 L (0.52-1.04) mg/dL Glucose 136 H (74-99) mg/dL Calcium 8.1 L (8.4-10.2) mg/dL AST 48 H (14-36) U/L Microbiology - Last 24 Hours (Table) 03/08/23 20:53 Blood Culture - Preliminary Blood
[2023-03-11] MEDS: LEVOFLOXACIN 750MG-D5W PMX 750 MG in DEXTROSE/WATER 1 150ML.BAG IVPB SCH (23:33)
[2023-03-12] MEDS: HYDROmorphone 1 MG/ML 1 ML SYRINGE IVP PRN ×2 (05:19→12:49)
[2023-03-12] MEDS: metroNIDAZOLE-NS PMX 500 MG in SALINE 1 100ML.BAG IVPB SCH ×2 (06:13→14:09)
[2023-03-12] MEDS: PANTOPRAZOLE 40 MG TABLET PO SCH (06:14)
[2023-03-12 06:33] LABS: ALT 24 U/L (4-34); AST 38 U/L (14-36); African American GFR (CKD) >90 (>60 ml/min/1.73 sqM); Albumin 3.3 g/dL (3.5-5.0); Albumin/Globulin Ratio 1.1; Alkaline Phosphatase 71 U/L (38-126); Anion Gap 8 mmol/L; Blood Urea Nitrogen 3 mg/dL (7-17); Calcium 8.5 mg/dL (8.4-10.2); Carbon Dioxide 27 mmol/L (22-30); Chloride 103 mmol/L (98-107); Glucose 130 mg/dL (74-99); Non-African American GFR(CKD) >90 (>60 ml/min/1.73 sqM); Potassium 3.6 mmol/L (3.5-5.1); Sodium 138 mmol/L (137-145); Total Bilirubin 0.4 mg/dL (0.2-1.3); Total Protein 6.3 g/dL (6.3-8.2)
[2023-03-12] MEDS: PANTOPRAZOLE 40 MG/10 ML VIAL IV SCH (08:49)
[2023-03-12] MEDS: HEPARIN SODIUM,PORCINE 5,000 UNIT/ML 1 ML VIAL SQ SCH ×2 (08:50→14:10)
[2023-03-12] MEDS: PARoxetine 10 MG TAB PO SCH (08:50)
[2023-03-12 08:59] VITALS: TEMP 98.8
--- NOTE | 2023-03-12 09:15 | XR ---
EXAMINATION TYPE: XR chest 2V DATE OF EXAM: 03/12/2023 9:06 AM CLINICAL INDICATION:Female, 47 years old with history of hypoxia; PH[facility] COMPARISON: None TECHNIQUE: XR chest 2V Frontal and lateral views of the chest. FINDINGS: Lungs/Pleura: Low lung volumes are present. There is no evidence of pleural effusion, focal consolida tion, or pneumothorax. Pulmonary vascularity: Pulmonary vascular congestion. Heart/mediastinum: Cardiomediastinal silhouette is unremarkable. Musculoskeletal: No acute osseous pathology. Other findings: None Lines/Tubes: IMPRESSION: Low lung volumes with a generalized hazy appearance which could represent atelectasis versus pulmonar y edema.
--- NOTE | 2023-03-12 11:11 | P.PN ---
Subjective Progress Note Date: 03/12/23 Principal diagnosis: Cholecystitis Patient was having some shortness of breath last night. Chest x-ray shows low lung volumes. She is on 2 L of oxygen. Denies chest pain. No leg pain. Patient states she would like to go home today. No abdominal pain. Objective - Vital Signs Vital signs: Vital Signs Temp 98.8 F 03/12/23 07:28 Pulse 79 03/12/23 07:28 Resp 16 03/12/23 07:28 BP 145/91 03/12/23 07:28 Pulse Ox 95 03/12/23 07:28 FiO2 Intake & Output 03/11/23 03/12/23 03/12/23 18:59 06:59 18:59 Intake Total 360 700 Balance 360 700 Intake: Intake, IV Titration 360 Amount Sodium Chloride 0.9% 1, 260 000 ml @ 130 mls/hr IV . Q7H42M [facility] Rx#:[id number] metroNIDAZOLE-NS PMX 500 100 mg In Saline 1 100ml.bag @ 100 mls/hr IVPB Q8H [facility] Rx#:[id number] Oral 700 - Exam Abdomen: Soft, nondistended, incisions clean and dry - Labs CBC & Chem 7: 03/11/23 05:43 03/12/23 05:54 Labs: Abnormal Lab Results - Last 24 Hours (Table) 03/12/23 Range/Units 05:54 BUN 3 L (7-17) mg/dL Creatinine 0.41 L (0.52-1.04) mg/dL Glucose 130 H (74-99) mg/dL AST 38 H (14-36) U/L Albumin 3.3 L (3.5-5.0) g/dL Microbiology - Last 24 Hours (Table) 03/08/23 20:53 Blood Culture - Preliminary Blood Assessment and Plan (1) Cholecystitis Narrative/Plan: 47-year-old female doing fairly well after recent cholecystectomy. Continue medical workup of the patient's shortness of breath. Continue diet as tolerated. May shower. Current Visit: Yes Status: Acute Code(s): K81.9 - CHOLECYSTITIS, UNSPECIFIED SNOMED Code(s): 60016536
--- NOTE | 2023-03-12 12:34 | P.DS ---
Providers Date of admission: 03/08/23 22:18 Expected date of discharge: 03/12/23 Attending physician: Shane Sy MD Consults: 03/08/23 22:18 Consult Physician Urgent Consulting Provider: Kerry Robertson Consult Reason/Comments: Acute cholecystitis Do you want consulting provider notified?: Yes Primary care physician: Daryl Torres [place] Hospital Course: Discharge Diagnosis: Acute cholecystitis status post cholecystectomy Metabolic acidosis GERD Anxiety Hospital Course: 47-year-old female with anxiety presenting with abdominal pain. Vital signs within normal limits. Gallbladder ultrasound shows evidence of acute cholecystitis. Laboratory workup unremarkable. Status post cholecystectomy. Patient was slightly hypoxic, likely related to atelectasis. Incentive spirometer given. No on room air. Follow-up with PCP. Patient seen and examined at bedside. Vital signs reviewed and stable. General: nontoxic, no distress, appears at stated age Derm: warm, dry Head: atraumatic, normocephalic, symmetric Eyes: EOMI, no lid lag, anicteric sclera Mouth: no lip lesion, mucus membranes moist Cardiovascular: S1S2 reg, no murmur Lungs: CTA bilateral, no rhonchi, no rales , no accessory muscle use Abdominal: soft, nontender to palpation, no guarding, no appreciable organomegaly Ext: no gross muscle atrophy, no edema, no contractures Neuro: CN II-XI grossly intact, no focal neuro deficits Psych: Alert, oriented, appropriate affect A total of 33 minutes of time were spent preparing this complex discharge summary. Patient was discharged on 03/12/23 at 1231. Patient Condition at Discharge: Stable Plan - Discharge Summary Discharge Rx Participant: Yes New Discharge Prescriptions: New HYDROcodone/APAP 5-325MG [[place] 5-325] 1 tab PO Q6HR PRN 3 Days #12 tab PRN Reason: Severe Breakthrough Pain Continue Echinacea & Goldenseal Root Supplement 1 cap PO DAILY Cetirizine HCl [Zyrtec] 10 mg PO DAILY Multivitamins, Thera [Multivitamin (formulary)] 1 tab PO DAILY PARoxetine HCL [Paxil] 30 mg PO DAILY Omeprazole 20 mg PO DAILY PRN PRN Reason: acid reflux diphenhydrAMINE HCL [Benadryl] 25 mg PO HS Sucralfate [Carafate] 1 gm PO DIRECTED Discharge Medication List Cetirizine HCl [Zyrtec] 10 mg PO DAILY 03/08/23 [History] Echinacea & Goldenseal Root Supplement 1 cap PO DAILY 03/08/23 [History] Multivitamins, Thera [Multivitamin (formulary)] 1 tab PO DAILY 03/08/23 [H istory] Omeprazole 20 mg PO DAILY PRN 03/08/23 [History] PARoxetine HCL [Paxil] 30 mg PO DAILY 03/08/23 [History] Sucralfate [Carafate] 1 gm PO DIRECTED 03/08/23 [History] diphenhydrAMINE HCL [Benadryl] 25 mg PO HS 03/08/23 [History] HYDROcodone/APAP 5-325MG [[place] 5-325] 1 tab PO Q6HR PRN 3 Days #12 tab 03/12/23 [Rx] Follow up Appointment(s)/Referral(s): Daryl Matthews MD [Primary Care Provider] - 1-2 days Patient Instructions/Handouts: Low Fat Diet (DC), Laparoscopic Cholecystectomy (DC) Activity/Diet/Wound Care/Special Instructions: Please see PCP. Discharge Disposition: HOME SELF-CARE
[2023-03-12 15:41] VITALS: BP 159/98; PULSE 85; RESP 17
== END 2023-03-12 15:59 | disposition home or self-care (01) | DRG 418 ==
LOC: EC 16:29 → 4SSUR 22:18 → OBSVTOIN 03-10 21:12 → UNDODISOB 03-12 15:59
PROVIDERS: ADMIT Internal Medicine; ATTEND Internal Medicine
PROC: 8E0W4CZ Robotic Assisted Procedure of Trunk Region, Percutaneous Endoscopic Approach (ICD-10-PCS; principal; 2023-03-10 10:15)
PROC: 0FT44ZZ Resection of Gallbladder, Percutaneous Endoscopic Approach (ICD-10-PCS; principal; 2023-03-10 10:15)
PROC: BF53200 Other Imaging of Gallbladder and Bile Ducts using Fluorescing Agent, Indocyanine Green Dye, Intraoperative (ICD-10-PCS; principal; 2023-03-10 10:15)
DX: K80.01 Calculus of gallbladder with acute cholecystitis with obstruction (principal); E87.20 Acidosis, unspecified; J98.11 Atelectasis; K82.1 Hydrops of gallbladder; K82.A1 Gangrene of gallbladder in cholecystitis; R09.02 Hypoxemia; K21.9 Gastro-esophageal reflux disease without esophagitis; F41.9 Anxiety disorder, unspecified; Z88.1 Allergy status to other antibiotic agents; Z88.0 Allergy status to penicillin; Z88.2 Allergy status to sulfonamides; Z79.899 Other long term (current) drug therapy; Z87.891 Personal history of nicotine dependence; Z28.310 Unvaccinated for COVID-19
CPT/HCPCS: 36415; 71046; 76705; 80053; 81001; 81025; 82150; 83690; 84484; 85025; 86850; 86900; 86901; 87040; 93005; 96365; 96368; 96372; 99285

== ENCOUNTER → 2023-03-08 | Outpatient (CLI) | payer BC ==
--- NOTE | 2023-03-08 16:16 | CT ---
EXAMINATION TYPE: CT abdomen pelvis w con DATE OF EXAM: 03/08/2023 COMPARISON: None HISTORY: RUQ abdominal pain with vomiting x [address] DLP: 2021.4 mGycm CONTRAST: CT scan of the abdomen and pelvis is performed without Oral Contrast and with IV Contrast, patient in jected with 100 cc mL of Isovue 300. FINDINGS: LUNG BASES-: No visible nodule. No infiltrate. LIVER/GB: Gallstone within the gallbladder neck with gallbladder wall thickening suspicious for acute cholecystitis. Common bile duct appears to be of normal caliber. No space occupying hepatic lesion. Biliary tree is of normal caliber. PANCREAS: No inflammation. No distinct mass. SPLEEN: No splenic enlargement. No lesion seen. ADRENALS: No nodule. No thickening. KIDNEYS/BLADDER: No hydronephrosis. No nephrolithiasis. No distinct renal mass. Urinary bladder g rossly unremarkable. BOWEL: Normal appendix. Normal bowel caliber. No inflammation. GENITAL ORGANS: No gross abnormality. LYMPH NODES: No greater than 1cm abdominal or pelvic lymph nodes are appreciated. AORTA: No significant abnormality. OSSEOUS STRUCTURES: No significant abnormality is seen. OTHER: No significant additional abnormality is seen. IMPRESSION: 1. Correlate for acute cholecystitis.
== END | disposition home or self-care (01) ==
LOC: RADCTMAIN 15:26
PROVIDERS: ATTEND Family Medicine
DX: R10.11 Right upper quadrant pain (principal); R11.10 Vomiting, unspecified
CPT/HCPCS: 74177; Q9967

== ENCOUNTER → 2023-11-03 | Outpatient (CLI) | payer BC ==
--- NOTE | 2023-11-28 11:43 | MM ---
Reason for Exam: Screening (asymptomatic). Baseline mammogram. Patient History: Menarche at age 13. First Full-Term at age 20. Patient has history of breast feeding. Last menstrual period: 10/12/2023 Risk Values: Toshia 5 year model risk: 0.8%. NCI Lifetime model risk: 8.3%. Prior Study Comparison: Patient's first Mammogram. Tissue Density: There are scattered areas of fibroglandular density. Findings: Analyzed By CAD. Right breast: There is no suspicious group of microcalcifications or new suspicious mass. Benign-appearing calcifications right breast. Left breast: There is no suspicious group of microcalcifications or new suspicious mass. Benign-appearing calcifications left breast. Overall Assessment: Benign, BI-RAD 2 Management: Screening Mammogram of both breasts in [address] [facility] will attempt to contact patient to return for supplemental views and ultrasound if indicated. Patient should continue monthly self-breast exams. A clinical breast exam by your physician is recommended on an annual basis. This exam should not preclude additional follow-up of suspicious palpable abnormalities. Note on Toshia scores and lifetime risk: 1. A Toshia score greater than 3% is considered moderate risk. If this is the case, consider specialist referral to assess eligibility for a risk reducing agent. 2. If overall lifetime risk for the development of breast cancer is 20% or higher, the patient may qualify for future screening with alternating mammogram and breast MRI. Electronically signed and approved by: Frandy Gutierrez DO
== END | disposition home or self-care (01) ==
LOC: RADMAMWWP 12:00
PROVIDERS: ATTEND Family Medicine
DX: Z12.31 Encounter for screening mammogram for malignant neoplasm of breast (principal); R92.323 Mammographic fibroglandular density, bilateral breasts
CPT/HCPCS: 77063; 77067

== ENCOUNTER → 2023-12-07 | Outpatient (CLI) | payer BC ==
--- NOTE | 2023-12-08 15:32 | MR ---
EXAMINATION TYPE: MR lumbar spine wo con DATE OF EXAM: 12/07/2023 COMPARISON: None HISTORY: Low back pain into rt leg TECHNIQUE: Multiplanar, multisequence images of the lumbar spine were acquired without IV contrast. Findings: The lumbar vertebral segments are normal in height and alignment and there is no fracture or subluxat ion. There is mild degenerative disc disease at the L3-4, L4-5 and L5-S1 levels where there is mild loss o f signal intensity, circumferential disc bulge and minimal disc space narrowing.. There is no lumbar disc herniation. Secondary to circumferential disc bulge, moderate facet hypertrophy and thickening of ligamentum flav um, there is mild to moderate spinal stenosis at the L3-4 and L4-5 levels.. The conus medullaris and cauda equina appear normal. There is mild neural foraminal stenosis at the L3-4 level in the left. There is moderate to severe ne ural foraminal stenosis at the L5-S1 level on the left. There is mild neural foraminal stenosis at th e L5-S1 level on the right. IMPRESSION: 1. Mild degenerative disease from L3 through S1. 2. No lumbar disc herniation. 3. mild to moderate spinal stenosis at the L3-4 and L4-5 levels. 4. Multilevel neural foraminal stenosis greatest at the L5-S1 level on the left as described above.
== END | disposition home or self-care (01) ==
LOC: RADMRIMAIN 07:22
PROVIDERS: ATTEND Family Medicine
DX: M54.16 Radiculopathy, lumbar region
CPT/HCPCS: 72148